=== PATIENT | male | born 1985 | race Caucasian/White ===

== ENCOUNTER 2023-05-30 10:42 | Emergency (ER) | payer BC, SELFPAY ==
[2023-05-30 11:40] VITALS: BP 119/73; PULSE 100; RESP 26; TEMP 36.9; O2SAT 99; BMI 25.1
[2023-05-30 13:51] VITALS: BP 121/83; PULSE 82; RESP 20; O2SAT 98
[2023-05-30] MEDS: KETOROLAC 30 MG/ML inj IM (13:52)
[2023-05-30 14:07] VITALS: PULSE 72; RESP 20; O2SAT 98
--- NOTE | 2023-05-30 14:20 | ED_ITS ---
HPI - General Adult General Date Seen: 05/30/23 Chief complaint: Back Injury/Pain Stated complaint: back pain Time Seen by Provider: 05/30/23 13:17 Source: patient Mode of arrival: ambulatory Limitations: no limitations History of Present Illness HPI narrative: Patient is a 38-year-old male who says he had a coughing jag last night during which he tweaked his back. He complains of low back pain across his low back. He does not have any radiating pain, numbness, weakness, has not had any fevers or weight loss. He says he tried to go to the chiropractor today and the chiropractor said he was having too much pain to do any adjustment and he should go to the ER. He has taken Tylenol and used ice and heat at home. Related Data Previous Rx's Medication Instructions Recorded cyclobenzaprine 10 mg tablet 10 mg PO TID PRN muscle spasm #14 05/30/23 tabs prednisone 20 mg tablet See Rx Instructions .Route 05/30/23 .COMPLEX #20 tabs Allergies Allergy/AdvReac Type Severity Reaction Status Date / Time No Known Drug Allergies Allergy Verified 05/30/23 11:40 Review of Systems Status of ROS: Reports: 6 or more systems reviewed and unremarkable except as noted in History and below Exam Narrative: Exam Narrative: Vital signs as noted above. In general, an alert, well-appearing patient. Head: Normocephalic, atraumatic. Eyes: Pupils are equal reactive. Extraocular movements are full. Conjunctivae are normal. ENT: Mucous membranes are moist. Throat is normal. Neck: Supple without lymphadenopathy. Heart: Regular rate and rhythm. No murmur or rub. Lungs: Clear bilaterally. No increased work of breathing, crackles or wheezes. Abdomen: Soft and nontender. No organomegaly. Back: Mild muscular tenderness across the low back, no midline tenderness. Extremities: Well perfused. No edema. No calf tenderness. Pulses intact. Neurologic: Patient is alert and oriented to person and place. Speech is fluent. Face is symmetric. Strength is 5 5 in bilateral lower extremities, sensation intact to light touch. Affect: Normal. Skin: Warm and dry. Well perfused. Const: Vital Signs, click to edit/add: Vital Signs - 24 hr 05/30/23 11:40 05/30/23 13:51 05/30/23 14:07 Temperature 98.4 F Pulse Rate [Pulse Oximeter] 100 82 72 Respiratory Rate 26 H 20 20 Blood Pressure [Ri ght Upper Arm] 119/73 121/83 Pulse Oximetry 99 98 98 Oxygen Delivery Me thod Room Air Room Air Room Air Documenting provider has reviewed patient's vital signs: yes Course Course ED Course: We had a long conversation about back pain in general. He wants to know whether something more serious than muscle spasm could be going on. Discussed that his history is not overly suggestive of disc herniation although that does not completely rule out. No red flags suggesting the need for immediate imaging and discussed that typically we treat this conservatively and if not improving would have him follow up with primary care and determine whether imaging is necessary at that time. He had Toradol 30 mg IM here. Will send him home with recommendations for ibuprofen and Tylenol 3 times daily, Flexeril, and will try a trial of prednisone as well. We set up a follow-up appointment for him with primary care next week for recheck. Return any time for acute worsening, w eakness, numbness, fevers or chills. Vital Signs Vital signs: Initial Vital Signs Temperature 98.4 F 05/30/23 11:40 Temperature Source Temporal Artery Scan 05/30/23 11:40 Pulse Rate 100 05/30/23 11:40 Respiratory Rate 26 H 05/30/23 11:40 Blood Pressure 119/73 05/30/23 11:40 Blood Pressure Mean 88 05/30/23 11:40 Blood Pressure Position Sitting 05/30/23 11:40 Pulse Oximetry 99 05/30/23 11:40 Oxygen Delivery Method Room Air 05/30/23 11:40 Vital Signs Temperature 98.4 F 05/30/23 11:40 Pulse Rate 100 05/30/23 11:40 Respiratory Rate 26 H 05/30/23 11:40 Blood Pressure 119/73 05/30/23 11:40 Pulse Oximetry 99 05/30/23 11:40 Oxygen Delivery Method Room Air 05/30/23 11:40 Temperature 98.4 F 05/30/23 11:40 Pulse Rate 72 05/30/23 14:07 Respiratory Rate 20 05/30/23 14:07 Blood Pressure 121/83 05/30/23 13:51 Pulse Oximetry 98 05/30/23 14:07 Oxygen Delivery Method Room Air 05/30/23 14:07 Discharge Plan Discharge Clinical Impression: Low back pain Patient Disposition: Home, Self-Care Condition: Stable Additional Instructions: Follow up appointment is scheduled with Dr. Mcmahan at the [facility] on 06/04. Your appointment is at 9am, but please arrive at 8:45am to complete paperwork. If you have any questions or need to reschedule, please call [phone]. [facility] [address] [place] [address] Medications as prescribed. Ibuprofen 400 mg plus Tylenol 1000 mg 3 times daily with food. Primary care follow-up next week as arranged. Return at any time for new symptoms such as weakness or numbness, fevers, severe uncontrolled pain. Prednisone dosin tablets daily for 3 days, then 2 tablets daily for 3 days, then 1 tablet daily for 3 days. Prescriptions: New prednisone 20 mg tablet See Rx Instructions .ROUTE .COMPLEX Qty: 20 0RF Rx Instructions: Three tabs daily for 3 days then 2 tabs daily for 3 days then 1 tab daily for 3 days cyclobenzaprine 10 mg tablet 10 mg PO TID PRN (Reason: muscle spasm) Qty: 14 0RF Stand Alone Forms: [facility] Info Instructions
== END 2023-05-30 14:10 | disposition home or self-care (01) ==
LOC: ED 14:09
PROVIDERS: Emergency Provider Emergency Medicine
DX: M54.50 Low back pain, unspecified (principal)
CPT/HCPCS: 96372; 99283; 99284; J1885